=== PATIENT | male | born 1980 | race Caucasian/White ===

== ENCOUNTER 2017-01-20 23:53 | Emergency (ER) | payer MEDICAID ==
[~2017-01-20] VITALS: Ht 180.3 cm; Wt 129.3 kg
[2017-01-21] MEDS ORDERED: LEVOTHYROXINE150 MCG ORAL (00:15)
[2017-01-21] MEDS ORDERED: LISINOPRIL20 MG ORAL (00:15)
[2017-01-21] MEDS ORDERED: GABAPENTIN300 MG ORAL (00:15)
[2017-01-21] MEDS ORDERED: FUROSEMIDE40 MG ORAL (00:15)
[2017-01-21] MEDS ORDERED: CITALOPRAM HBR20 M1 ORAL (00:15)
[2017-01-21] MEDS ORDERED: CATAPRES0.1 MG ORAL (00:15)
[2017-01-21] MEDS ORDERED: AMLODIPINE BESY10 MG ORAL (00:15)
[2017-01-21] MEDS ORDERED: HYDROCHLOROTHIA50 MG ORAL (00:15)
[2017-01-21] MEDS ORDERED: HYDRALAZINE HCL25 M1 ORAL (00:15)
[2017-01-21] MEDS ORDERED: POTASSIUM99 M3 PO (00:15)
[2017-01-21] MEDS ORDERED: METFORMIN HCL1000 M1 ORAL (00:15)
[2017-01-21] MEDS ORDERED: METOPROLOL SUCC25 MG ORAL (00:15)
[2017-01-21] MEDS ORDERED: ATORVASTATIN CA40 MG ORAL (00:15)
[2017-01-21] MEDS ORDERED: GLYBURIDE5 MG PO (00:15)
[2017-01-21] MEDS ORDERED: Tubing IV Cassette IV ONE (00:41)
[2017-01-21] MEDS ORDERED: Ketorolac 30mg Inj IV ONE (00:45)
[2017-01-21 01:03] LABS: BASOPHILS % (AUTO) 1.2 % (0.0-2.0); EOSINOPHILS % (AUTO) 2.4 % (0.0-3.0); LYMPHOCYTES % (AUTO) 27.6 % (20.0-45.0); MEAN CORPUSCULAR HEMOGLOBIN 32.4 PG (27.0-31.0); MEAN CORPUSCULAR HGB CONC 34.6 G/DL (32.0-36.0); MEAN CORPUSCULAR VOLUME 94 FL (80-99); MEAN PLATELET VOLUME 9.7 FL (6.5-10.1); MONOCYTES % (AUTO) 10.6 % (1.0-10.0); NEUTROPHILS % (AUTO) 58.2 % (45.0-75.0); PLATELET COUNT 308 K/UL (150-450); RED BLOOD COUNT 4.52 M/UL (4.70-6.10); RED CELL DISTRIBUTION WIDTH 12.4 % (11.6-14.8); WHITE BLOOD COUNT 12.7 K/UL (4.8-10.8)
[2017-01-21 01:30] LABS: APPEARANCE,URINE CLEAR; KETONES,URINE 1+ (NEGATIVE); LEUKOCYTE ESTERASE ,URINE 1+ (NEGATIVE); NITRITE,URINE NEGATIVE (NEGATIVE); PH,URINE 5 (4.5-8.0); PROTEIN,URINE 2+ (NEGATIVE); UROBILINOGEN,URINE 1 MG/DL (0.0-1.0)
[2017-01-21 01:34] LABS: ALANINE AMINOTRANSFERASE 28 U/L (3-41); ALBUMIN/GLOBULIN RATIO 1.5 (1.0-2.7); ANION GAP 16 (5-15); ASPARTATE AMINO TRANSFERASE 20 U/L (5-40); CALCIUM 10.1 mg/dL (8.6-10.2); CARBON DIOXIDE 25 mEQ/L (20-30); CHLORIDE 97 mEQ/L (98-107); GLOMERULAR FILTRATION RATE > 60 mL/min (>60); HEMOLYSIS 5; LIPASE 37 U/L (< 60); POTASSIUM 3.9 mEQ/L (3.4-4.9); SODIUM 138 mEQ/L (135-145); TOTAL PROTEIN 7.1 g/dL (6.6-8.7)
[2017-01-21 01:48] LABS: MUCUS,URINE MANY /LPF (NONE/OCC); RBC,URINE 0 /HPF (0 - 0); SQUAMOUS EPITHELIAL CELL,UR FEW /LPF (NONE/OCC); WBC,URINE 0-2 /HPF (0 - 0)
[2017-01-21 01:49] LABS: ICTOTEST NEGATIVE
[2017-01-21 02:45] VITALS: BP 104/72
--- NOTE | 2017-01-21 02:48 | Emergency Room Report ---
History of Present Illness General Chief Complaint: Abdominal Pain Source: Patient Present Illness HPI Is a 36-year-old male with history of colon cancer with status post resection. He also a history of diabetes. He recently moved here from [place]. He has a large ventral hernia that was not operated on. He said he moved here because he thinks the surgeon who operated on him. He presents with chief complaint of vomiting. No diarrhea. Has a lot of gas. Pain is crampy in nature. He is normally on pain medication but has not anything since he moved here. He has prescription for pain medication. He was recently at [facility] 3 days ago for similar pain. Allergies: Uncoded Allergies: PENICILLIN (Allergy, Unknown, 01/20/17) Patient History Past Medical History: see triage record, old chart reviewed Past Surgical History: other Pertinent Family History: none Social History: Denies: smoking Immunizations: other Reviewed Nursing Documentation: PMH: Agreed, PSxH: Agreed Nursing Documentation-PMH Hx Hypertension: Yes Hx Diabetes: Yes Hx Cancer: Yes - colon and thyroid Review of Systems Eye: Denies: blurred vision, eye pain ENT: Denies: ear pain, nose congestion, throat swelling Respiratory: Denies: cough, shortness of breath Cardiovascular: Denies: chest pain, palpitations Gastrointestinal: Reports: abdominal pain, nausea, vomiting, Denies: diarrhea Musculoskeletal: Denies: back pain, joint pain Skin: Denies: rash Neurological: Denies: headache, numbness Endocrine: Denies: increased thirst, increased urine Hematologic/Lymphatic: Denies: easy bruising All Other Systems: negative except mentioned in HPI Physical Exam Vital Signs Date Time Temp Pulse Resp B/P Pulse Ox O2 Delivery O2 Flow Rate FiO2 01/20/17 23:53 88 18 135/71 96 Room Air vitals normal Sp02 EP Interpretation: reviewed, normal General Appearance: well appearing, no apparent distress, alert, obese Head: normocephalic, atraumatic Eyes: bilateral eye EOMI, bilateral eye PERRL ENT: hearing grossly normal, normal pharynx Neck: full range of motion, supple, no meningismus Respiratory: chest non-tender, lungs clear, normal breath sounds Cardiovascular #1: regular rate, rhythm, no murmur Gastrointestinal: normal bowel sounds, non tender, no mass, no organomegaly, no bruit, non-distended, other - Large ventral hernia. No hardness or tenderness., overweight Musculoskeletal: back normal, gait/station normal, normal range of motion Neurologic: alert, oriented x3 Psychiatric: mood/affect normal Skin: warm/dry Medical Decision Making Diagnostic Impression: Primary Impression: Abdominal pain of unknown etiology Additional Impressions: Ventral hernia without obstruction or gangrene Proteinuria Qualified Codes: R80.9 - Proteinuria, unspecified Morbid obesity with BMI of 40.0-44.9, adult ER Course Patient with abdominal pain in that her hernia. No evidence of obstruction. No evidence of acute abdomen. No evidence of perforation. He felt better now. We'll discharge home. Lab Results Impression labs unremarkable CT/MRI/US Diagnostic Results CT/MRI/US Diagnostic Results : Imaging Test Ordered: CT abdomen and pelvis Impression Read by radiologist. Very large ventral hernia containing portion of stomach, small and large bowel. No obstruction. Last Vital Signs Date Time Temp Pulse Resp B/P Pulse Ox O2 Delivery O2 Flow Rate FiO2 01/20/17 23:53 88 18 135/71 96 Room Air Status: improved Disposition: HOME, SELF-CARE Condition: Stable Referrals: NOT CHOSEN IPA/,REFERRING (PCP) Patient Instructions: Abdominal Pain, Adult Additional Instructions: Followup with your DrYong in 7 days. Return if symptom worsen. Fill your prescriptions. RAE HENRIQUEZ M.D. Jan 21, 2017 02:48
[2017-01-21 03:10] VITALS: BP 104/72
[2017-01-21 04:10] LABS: BILIRUBIN,DIRECT 0.2 mg/dL (0.1-0.3)
--- NOTE | 2017-01-21 10:49 | Diagnostic Imaging Report ---
Indication: Abdominal pain Technique: Spiral acquisitions obtained through the abdomen and pelvis. No oral contrast utilized, per emergency room physician request No IV contrast utilized, per referring physician request. Multiplanar reconstructions were generated. Total dose length product 1120 mGycm. CTDIvol(s) 19 mGy. Dose reduction achieved using automated exposure control Comparison: None Findings: Lack of oral contrast limits assessment of the GI tract. There is broad-based diastasis of the rectus abdominis tendon, into which protrudes. Appearance similar to abdominal contents a ventral hernia, but suspect that the infected intra-abdominal contents are all contained within the peritoneal space. This contains essentially the entire mesentery and attached enteric structures, including the stomach, most of the colon, process small bowel. This does not result in any evidence of strangulation or obstruction. Anastomotic staple lines are seen in the region of the terminal ileum and cecum. The appendix is not definitely identified, may be surgically absent. No evidence of diverticulosis or diverticulitis. No free or loculated is borderline enlarged. Intraperitoneal air or fluid. There are small fat-containing bilateral inguinal hernias Lack of IV contrast limits assessment of solid organs. The liver is equivocally mildly hypoattenuating, consistent with fatty change. The gallbladder is nondistended, may contain one or more small stones. No biliary ductal dilatation. The pancreas is atrophic. The spleen is enlarged, measuring 16 cm long axis dimension.. The and right kidney are grossly unremarkable. The left kidney demonstrates multiple subcentimeter low-attenuation lesions which are too small to characterize, most likely benign simple cortical cysts. The bladder is nondistended, equivocally mildly thickwalled. No pelvic mass or adenopathy. The included lung bases are clear. There is minimal pericardial thickening and/or fluid. The bones demonstrate degenerative spondylosis changes. Impression: Large ventral hernia versus broad-based diastasis of the rectus abdominis tendon, containing essentially the entire mesentery and attached enteric structures. No evidence of obstruction or strangulation No acute process Splenomegaly. Equivocal hepatomegaly Fatty liver Minimal pericardial thickening and/or fluid Left renal subcentimeter low-attenuation lesions, too small to characterize, most likely benign simple cysts. No further followup necessary Degenerative spondylosis, small fat-containing bilateral inguinal hernias incidentally noted This agrees with the preliminary interpretation provided overnight by [employer] teleradiology service. The CT scanner at [facility] is accredited by the [employer] and the scans are performed using protocols designed to limit radiation exposure to as low as reasonably achievable to attain images of sufficient resolution adequate for diagnostic evaluation.
== END 2017-01-21 03:10 | disposition home or self-care (01) ==
LOC: EDBD 23:53 → EMR 01-21 00:12
DX: R10.9 Unspecified abdominal pain (principal); K43.9 Ventral hernia without obstruction or gangrene; R80.9 Proteinuria, unspecified; R16.1 Splenomegaly, not elsewhere classified; K76.0 Fatty (change of) liver, not elsewhere classified; I10 Essential (primary) hypertension; E11.9 Type 2 diabetes mellitus without complications; Z85.038 Personal history of other malignant neoplasm of large intestine; Z85.850 Personal history of malignant neoplasm of thyroid; Z88.0 Allergy status to penicillin; E66.01 Morbid (severe) obesity due to excess calories; Z68.39 Body mass index [BMI] 39.0-39.9, adult
CPT/HCPCS: 36415; 74176; 80053; 80300; 81003; 82248; 83690; 85025; 96374; 96375; 99284; J1885; J2405

== ENCOUNTER 2017-10-09 05:58 | Emergency (ER) | payer MEDICAID ==
[~2017-10-09] VITALS: Ht 210.8 cm; Wt 174.6 kg
[~2017-10-09 05:58] MED LIST: AMLODIPINE BESY10 MG ORAL; ATORVASTATIN CA40 MG ORAL; CATAPRES0.1 MG ORAL; CITALOPRAM HBR20 M1 ORAL; FUROSEMIDE40 MG ORAL; GABAPENTIN300 MG ORAL; GLYBURIDE5 MG PO; HYDRALAZINE HCL25 M1 ORAL; HYDROCHLOROTHIA50 MG ORAL; LEVOTHYROXINE150 MCG ORAL; LISINOPRIL20 MG ORAL; METFORMIN HCL1000 M1 ORAL; METOPROLOL SUCC25 MG ORAL; POTASSIUM99 M3 PO
[2017-10-09] MEDS ORDERED: Ketorolac 30mg Inj IV ONE (06:15)
[2017-10-09] MEDS ORDERED: IBUPROFEN600 MG ORAL (06:19)
--- NOTE | 2017-10-09 06:20 | Emergency Room Report ---
History of Present Illness General Chief Complaint: Abdominal Pain Source: Patient, EMS (RAE HENRIQUEZ M.D.) Present Illness HPI Is a 37-year-old male who has a history of colon cancer with resection in the past. Also claims and thyroid cancer with resection. He presents with chief complaint abdominal pain. He has a very large ventral hernia from his surgery. He moved from [place] to here because he fell a Dr. who is willing to do his hernia surgery. But he claimed that he need prophylactic colon resection in order do that her hernia repair. The same complaint he had when I saw him in December 2016. He complained of generalized abdominal pain which is 7/10. Ongoing for the last 3 days. Similar to previous presentation. No nausea no vomiting. She has some mild diarrhea. Nothing made it better. Any movement made it worse. (RAE HENRIQUEZ M.D.) Allergies: Coded Allergies: PENICILLINS (Unverified Allergy, Unknown, 10/09/17) Patient History Past Medical History: see triage record, old chart reviewed Past Surgical History: other Pertinent Family History: none Social History: Denies: smoking Immunizations: other Reviewed Nursing Documentation: PMH: Agreed, PSxH: Agreed (RAE HENRIQUEZ M.D.) Nursing Documentation-PMH Past Medical History: No History, Except For Hx Cardiac Problems: No - Thyroidism cancer (removed) Hx Hypertension: Yes Hx Diabetes: Yes Hx Cancer: Yes - colon and thyroid (RAE HENRIQUEZ M.D.) Review of Systems Eye: Denies: eye pain, blurred vision ENT: Denies: ear pain, nose congestion, throat swelling Respiratory: Denies: cough, shortness of breath Cardiovascular: Denies: chest pain, palpitations Gastrointestinal: Reports: abdominal pain, Denies: diarrhea, nausea, vomiting Musculoskeletal: Denies: back pain, joint pain Skin: Denies: rash Neurological: Denies: headache, numbness Endocrine: Denies: increased thirst, increased urine Hematologic/Lymphatic: Denies: easy bruising All Other Systems: negative except mentioned in HPI (RAE HENRIQUEZ M.D.) Physical Exam Vital Signs Date Time Temp Pulse Resp B/P (MAP) Pulse Ox O2 Delivery O2 Flow Rate FiO2 10/09/17 05:49 97.5 65 16 174/105 99 Room Air vitals with high blood pressure Sp02 EP Interpretation: reviewed, normal General Appearance: well appearing, no apparent distress, alert, obese Head: normocephalic, atraumatic Eyes: bilateral eye PERRL, bilateral eye EOMI ENT: hearing grossly normal, normal pharynx Neck: full range of motion, supple, no meningismus Respiratory: chest non-tender, lungs clear, normal breath sounds Cardiovascular #1: regular rate, rhythm, no murmur Gastrointestinal: normal bowel sounds, no mass, no organomegaly, no bruit, non- distended, tenderness - Diffuse, other - Large ventral hernia Musculoskeletal: back normal, gait/station normal, normal range of motion Neurologic: alert, oriented x3 Psychiatric: mood/affect normal Skin: warm/dry (RAE HENRIQUEZ M.D.) Medical Decision Making Diagnostic Impression: Primary Impression: Abdominal pain of unknown etiology Additional Impressions: Ventral hernia without obstruction or gangrene Morbid obesity ER Course Patient presents with chronic abdominal pain and ventral hernia. Based on the size, I doubt that is obstructing or gangrenous. We'll confirm with CAT scan and blood work. If negative patient will be discharged home. I suspect any opioid dependence and anxiety. His story about needing prophylactic colon resection doesn't make sense. He may need gastric bypass because of his morbid obesity. I will sign this patient out to Dr. Russo for labs, Ct scan and final disposition. (RAE HENRIQUEZ M.D.) ER Course Received signout from Dr Henriquez at 630am Patient endorses acute onset abd pain, generalized with severe nausea, gas, distention Endorses 9x previous abd surgery No active vomiting, diarrhea Last BM yesterday Labs: No leuks. H&H stable. No metabolic abnormalities. Patient too large for our CT scanner - has put on 50kg since December CT Spoke to Dr Pedro from [facility] - recommends med/surg admit for observation, serial abd exams to monitor for ?SBO Endorsed to Dr Vega as panel physician at 805am Update, 1039am Patient was endorsed to Dr. Vega for admission Patient seen by Dr. Pedro in ED, was noted to have reducible ventral hernia. The surgeon was able to reduce the hernia with improvement in patient' s symptoms and size of abdomen Patient was given additional pain medication and antinausea medication, and tolerated by mouth The patient did not want to be admitted at this point Patient signed out AMA He has capacity, he is alert and oriented x3, he understands that medical advice would be to stay in hospital for observation, serial abdominal exams by general surgery and additional management as needed. However patient states he has a primary care doctor and a surgeon and would prefer to followup with them Patient was given discharge paperwork and prescription for Motrin that was written by Dr. Henriquez (STEPHANE RUSSO M.D.) Rhythm Strip Diag. Results EP Interpretation: yes Rate: 53 Rhythm: NSR, no PVC's, no ectopy (STEPHANE RUSSO M.D.) Last Vital Signs Date Time Temp Pulse Resp B/P (MAP) Pulse Ox O2 Delivery O2 Flow Rate FiO2 10/09/17 05:49 97.5 65 16 174/105 99 Room Air Status: improved (RAE HENRIQUEZ M.D.) Status: improved (STEPHANE RUSSO M.D.) Disposition: AGAINST MEDICAL ADVICE Condition: Stable Scripts Ibuprofen* (MOTRIN*) 600 Mg Tablet 600 MG ORAL THREE TIMES A DAY, #30 TAB 0 Refills Prov: RAE HENRIQUEZ M.D. 10/09/17 Patient Instructions: Abdominal Pain, Adult Additional Instructions: Followup with your surgeon in 2-3 days. Return if symptom worsen. RAE HENRIQUEZ M.D. Oct 09, 2017 06:20 STEPHANE RUSSO M.D. Oct 09, 2017 08:06
[2017-10-09 06:34] LABS: APPEARANCE,URINE CLEAR; BILIRUBIN, URINE NEGATIVE (NEGATIVE); COLOR,URINE PALE YELLOW; GLUCOSE, URINE (UA) NEGATIVE (NEGATIVE); KETONES,URINE NEGATIVE (NEGATIVE); LEUKOCYTE ESTERASE ,URINE NEGATIVE (NEGATIVE); NITRITE,URINE NEGATIVE (NEGATIVE); PH,URINE 6 (4.5-8.0); PROTEIN,URINE 1+ (NEGATIVE); UROBILINOGEN,URINE NORMAL MG/DL (0.0-1.0)
[2017-10-09 06:59] LABS: BASOPHILS % (AUTO) 1.5 % (0.0-2.0); EOSINOPHILS % (AUTO) 2.9 % (0.0-3.0); HEMOGLOBIN 13.7 G/DL (14.2-18.0); LYMPHOCYTES % (AUTO) 13.4 % (20.0-45.0); MEAN CORPUSCULAR VOLUME 92 FL (80-99); MONOCYTES % (AUTO) 7.5 % (1.0-10.0); NEUTROPHILS % (AUTO) 74.7 % (45.0-75.0); PLATELET COUNT 231 K/UL (150-450); RED BLOOD COUNT 4.22 M/UL (4.70-6.10); RED CELL DISTRIBUTION WIDTH 12.9 % (11.6-14.8); WHITE BLOOD COUNT 10.2 K/UL (4.8-10.8)
[2017-10-09 07:10] LABS: ANION GAP 8 mmol/L (5-15); BLOOD UREA NITROGEN 10 mg/dL (7-18); CALCIUM 9.1 MG/DL (8.5-10.1); CARBON DIOXIDE 28 MMOL/L (21-32); CHLORIDE 104 MMOL/L (98-107); CREATININE 0.8 MG/DL (0.55-1.30); POTASSIUM 3.9 MMOL/L (3.5-5.1); SODIUM 139 MMOL/L (136-145)
[2017-10-09 07:13] LABS: ALANINE AMINOTRANSFERASE 26 U/L (12-78); ALBUMIN 3.7 G/DL (3.4-5.0); ALBUMIN/GLOBULIN RATIO 0.9 (1.0-2.7); ALKALINE PHOSPHATASE 66 U/L (46-116); ASPARTATE AMINO TRANSFERASE 19 U/L (15-37); BILIRUBIN,TOTAL 0.7 MG/DL (0.2-1.0)
[2017-10-09 07:56] VITALS: BP 172/115
[2017-10-09] MEDS ORDERED: Morphine Sulfate 4mg/ml Inj IVP ONE (10:15)
--- NOTE | 2017-10-09 10:15 | Consultation ---
History of Present Illness General Date patient seen: Oct 09, 2017 Chief Complaint: Abdominal Pain Reason for Consultation: abdominal pain Present Illness HPI 37 year old male with complicated surgical history presents with acute onset of generalized abdominal pain. As per patient, he was in his normal state of health until late last night when he began to note some cramping generalized abdominal discomfort. pain associated with nausea but no emesis. given his history of large abdominal hernia he was concerned and came to ED for evaluation. Patient has history of RET with FAP s/p subtotal colectomy, s/p thyroidectomy, and states that he may have pituitary condition that is being worked up. Since his open subtotal colectomy he has developed a very large mouth ventral hernia with significant loss of domain. he has been seen by many surgeons and is currently under the care of Dr. Pichardo at [facility] for eventual repair of hernia. Patient states that there are plans for gastric bypass in future with hernia repair but he is not ready for it yet. He has had intermittent episodes similar to this including a visit to the ED a few months back with similar symptoms. At that time he did not weight as much and CT was performed which identified large mouth hernia but no obstruction. Currently patient states that nausea is improving but he is mildly uncomfortable. States he is consistently passing flatus. BM's are nml. Allergies: Coded Allergies: PENICILLINS (Unverified Allergy, Unknown, 10/09/17) Medication History Scheduled Amlodipine Besylate* (Amlodipine Besylate*), 10 MG ORAL DAILY, (Reported) Atorvastatin Calcium* (Atorvastatin Calcium*), 40 MG ORAL BEDTIME, (Reported) Citalopram Hydrobromide* (Citalopram Hbr*), 20 MG ORAL DAILY, (Reported) Clonidine Hcl* (Catapres*), 0.1 MG ORAL BID, (Reported) Furosemide* (Lasix*), 40 MG ORAL DAILY, (Reported) Gabapentin* (Gabapentin*), 300 MG ORAL THREE TIMES A DAY, (Reported) Glyburide (Glyburide), 5 MG PO BID, (Reported) Hydralazine Hcl* (Hydralazine Hcl*), 25 MG ORAL EVERY 6 HOURS, (Reported) Hydrochlorothiazide* (Hydrochlorothiazide*), 50 MG ORAL DAILY, (Reported) Ibuprofen* (Motrin*), 600 MG ORAL THREE TIMES A DAY Levothyroxine Sodium* (Levothyroxine Sodium*), 300 MCG ORAL DAILY, (Reported) Lisinopril (Lisinopril*), 40 MG ORAL DAILY, (Reported) Metformin Hcl* (Metformin Hcl*), 1,000 MG ORAL BID, (Reported) Metoprolol Succinate* (Metoprolol Succinate*), 25 MG ORAL TWICE A DAY, (Reported ) Potassium Gluconate (Potassium), 10 MEQ PO DAILY, (Reported) Patient History History Provided By: Patient Healthcare decision maker Resuscitation status Advanced Directive on File Past Medical/Surgical History Past Medical/Surgical History: (1) Ventral hernia without obstruction or gangrene (2) Morbid obesity (3) Abdominal pain of unknown etiology (4) FAP (familial adenomatous polyposis) (5) Hx of total colectomy (6) History of thyroidectomy, total Review of Systems Constitutional: Denies: no symptoms, see HPI, chills, sweats, fever, malaise, weakness, other Eye: Denies: no symptoms, see HPI, eye pain, blurred vision, tearing, double vision, nose pain, nose congestion, acuity changes, discharge, other ENT: Denies: no symptoms, see HPI, ear pain, ear discharge, nose pain, nose congestion, throat pain, throat swelling, mouth pain, hearing loss, nasal discharge, other Respiratory: Denies: no symptoms, see HPI, cough, orthopnea, shortness of breath, stridor, wheezing, ROSARIO, sputum, other Cardiovascular: Denies: no symptoms, see HPI, chest pain, edema, palpitations, syncope, PND, other Gastrointestinal: Reports: abdominal pain, nausea Genitourinary: Denies: no symptoms, see HPI, discharge, dysuria, frequency, hematuria, pain, retention, incontinence, urgency, vag bleed/dc, other Musculoskeletal: Denies: no symptoms, see HPI, back pain, gout, joint pain, joint swelling, muscle pain, muscle stiffness, other Skin: Denies: no symptoms, see HPI, rash, change in color, change in hair/nails , dryness, lesions, other Psychiatric: Denies: no symptoms, see HPI, prior hx, anxiety, depressed feelings, emotional problems, SI, HI, hallucinations, other Neurological: Denies: no symptoms, see HPI, headache, numbness, paresthesia, seizure, tingling, tremors, focal weakness, syncope, dizziness, other Endocrine: Denies: no symptoms, see HPI, excessive sweating, flushing, intolerance to temperature, increased thirst, increased urine, unexplained weight loss, other Hematologic/Lymphatic: Denies: no symptoms, see HPI, anemia, blood clots, easy bleeding, easy bruising, swollen glands, diathesis, other Physical Exam General Appearance: WD/WN, no apparent distress, alert Lines, tubes and drains: peripheral HEENT: normocephalic, atraumatic, PERRL Neck: normal inspection Respiratory/Chest: normal breath sounds, no respiratory distress, no accessory muscle use Cardiovascular/Chest: normal rate, regular rhythm Abdomen: normal bowel sounds, soft, tender, hernia, other - soft non distended , morbid obesity, large hernia identified without incarceration or strangulation. reducible. no rebound. no guarding Extremities: normal range of motion, non-tender Skin Exam: normal pigmentation, warm/dry Neurologic: alert, oriented x 3, responsive Last 24 Hour Vital Signs Date Time Temp Pulse Resp B/P (MAP) Pulse Ox O2 Delivery O2 Flow Rate FiO2 10/09/17 07:56 60 13 172/115 95 Room Air 10/09/17 06:54 97.6 10/09/17 05:49 97.5 65 16 174/105 99 Room Air Laboratory Tests Test 10/09/17 06:15 10/09/17 06:20 10/09/17 08:20 White Blood Count 10.2 K/UL (4.8-10.8) Red Blood Count 4.22 M/UL (4.70-6.10) L Hemoglobin 13.7 G/DL (14.2-18.0) L Hematocrit 39.0 % (42.0-52.0) L Mean Corpuscular Volume 92 FL (80-99) Mean Corpuscular Hemoglobin 32.5 PG (27.0-31.0) H Mean Corpuscular Hemoglobin Concent 35.2 G/DL (32.0-36.0) Red Cell Distribution Width 12.9 % (11.6-14.8) Platelet Count 231 K/UL (150-450) Mean Platelet Volume 9.2 FL (6.5-10.1) Neutrophils (%) (Auto) 74.7 % (45.0-75.0) Lymphocytes (%) (Auto) 13.4 % (20.0-45.0) L Monocytes (%) (Auto) 7.5 % (1.0-10.0) Eosinophils (%) (Auto) 2.9 % (0.0-3.0) Basophils (%) (Auto) 1.5 % (0.0-2.0) Sodium Level 139 MMOL/L (136-145) Potassium Level 3.9 MMOL/L (3.5-5.1) Chloride Level 104 MMOL/L (98-107) Carbon Dioxide Level 28 MMOL/L (21-32) Anion Gap 8 mmol/L (5-15) Blood Urea Nitrogen 10 mg/dL (7-18) Creatinine 0.8 MG/DL (0.55-1.30) Estimat Glomerular Filtration Rate > 60 mL/min (>60) Glucose Level 155 MG/DL (74-106) H Calcium Level 9.1 MG/DL (8.5-10.1) Total Bilirubin 0.7 MG/DL (0.2-1.0) Aspartate Amino Transf (AST/SGOT) 19 U/L (15-37) Alanine Aminotransferase (ALT/SGPT) 26 U/L (12-78) Alkaline Phosphatase 66 U/L (46-116) Total Protein 7.6 G/DL (6.4-8.2) Albumin 3.7 G/DL (3.4-5.0) Globulin 3.9 g/dL Albumin/Globulin Ratio 0.9 (1.0-2.7) L Lipase 144 U/L (73-393) Urine Color Pale yellow Urine Appearance Clear Urine pH 6 (4.5-8.0) Urine Specific [place] 1.015 (1.005-1.035) Urine Protein 1+ (NEGATIVE) H Urine Glucose (UA) Negative (NEGATIVE) Urine Ketones Negative (NEGATIVE) Urine Occult Blood Negative (NEGATIVE) Urine Nitrite Negative (NEGATIVE) Urine Bilirubin Negative (NEGATIVE) Urine Urobilinogen Normal MG/DL (0.0-1.0) Urine Leukocyte Esterase Negative (NEGATIVE) Urine RBC 0 /HPF (0 - 0) Urine WBC 0-2 /HPF (0 - 0) Urine Squamous Epithelial Cells Occasional /LPF Urine Bacteria Occasional /HPF (NONE) Lactic Acid Level 2.00 mmol/L (0.66-2.22) Height (Feet): 6 Height (Inches): 11.00 Weight (Pounds): 385 Assessment/Plan Problem List: (1) Ventral hernia without obstruction or gangrene Assessment & Plan: 37 year old male with extensive surgical history presents with abdominal pain and nausea related to large ventral hernia. concerns for obstruction. surgery called to evaluate. unfortunately patient has gained significant weight over past few months and is currently too large for our CT scan. Exam demonstrated morbidly obese patient with very large ventral hernia. most bowel contents in hernia as seen on prior CT. after manipulation and turning patient I was able to palpate most of the hernia boundaries. Bowel identified in hernia sac and easily mobile. no obstruction or incarceration noted. bowel sounds easily identified. patient passing flatus and nausea resolving. Discussed findings with patient. I do not no believe he needs urgent surgery and he seems to be improving. We discussed possible care plans. I would be happy to admit him for observation or if he feels well he can go safely with strict precautions. patient expressed understand and desire to go home if possible. now that pain is improving and nausea resolved we can trial liquid diet. if he is able to tolerate diet and be ambulatory without significant discomfort okay to d/c home. Patient instructed to follow up with his primary surgeon at [facility] who specializes in bariatric patients. He is welcome to call my office with any questions or concerns. I am happy to see him at anytime. thank you for this consultation. ICD Codes: K43.9 - Ventral hernia without obstruction or gangrene SNOMED: [id number], [id number] Status: stable Alfonso Nieto Oct 09, 2017 10:15
[2017-10-09 10:45] VITALS: BP 172/115
== END 2017-10-09 10:46 | disposition left against medical advice (07) ==
LOC: EDBD 05:58 → EMR 07:05
DX: R10.84 Generalized abdominal pain (principal); K43.9 Ventral hernia without obstruction or gangrene; E66.01 Morbid (severe) obesity due to excess calories; Z68.39 Body mass index [BMI] 39.0-39.9, adult; I10 Essential (primary) hypertension; E11.9 Type 2 diabetes mellitus without complications; Z85.038 Personal history of other malignant neoplasm of large intestine; Z85.850 Personal history of malignant neoplasm of thyroid; Z88.0 Allergy status to penicillin; Z98.890 Other specified postprocedural states
CPT/HCPCS: 36415; 80053; 81003; 83605; 83690; 85025; 96374; 96375; 99284; J1885; J2270; J2405